=== PATIENT | female | born 1995 | race Caucasian/White ===

== ENCOUNTER → 2018-12-04 | Outpatient (CLI) | payer OTHER ==
--- NOTE | 2018-12-04 15:22 | US ---
EXAMINATION TYPE: US OB >= 14 wk fetus DATE OF EXAM: 12/04/2018 COMPARISON: None CLINICAL HISTORY: O26.842 Uterine size-date discrepancy, second trim TECHNIQUE: Transabdominal (TA) GESTATIONAL AGE / DATING Physician Established: (21 weeks/0 days) EDC: 04/17/19 Dates by LMP: (21 weeks/2 days) EDC: 04/14/18 Dates by First Scan: No previous this is first scan ( weeks/ days) EDC: Dates by Current Scan: (20 weeks/5 days) EDC: 04/18/19 Beta HCG (if available): SURVEY IUP: Single PLACENTA: Posterior PREVIA: No Previa AVIS: 13.5 cm Normal CERVICAL LENGTH (transabdominal: norm > 3.0cm): 3.0 cm BIOMETRY PRESENTATION: Breech LIE: Longitudinal BPD: 4.9 cm 21 weeks / 0 days HC: 17.4 cm 19 weeks / 6 days AC: 16.2 cm 21 weeks / 2 days FL: 3.7 cm 21 weeks / 4 days ESTIMATED WEIGHT IN GRAMS: 410.9 grams ESTIMATED WEIGHT IN LBS/OZ: 0 lbs. 14 oz. WEIGHT PERCENTAGE BASED ON ESTABLISHED DATES: 43.0% HC/AC: 1.1 Normal FL/AC: 74.1 Normal HEART RATE: 160 bpm RHYTHM: Normal Choroid plexus cyst noted = 0.36 cm RVOT and LVOT not well seen due to lie (spine up). IMPRESSION: Single viable intrauterine as discussed above. Chorioplexus cyst noted.
== END ==
LOC: RADUSWWP 13:54
PROVIDERS: ATTEND Obstetrics & Gynecology
DX: O26.842 Uterine size-date discrepancy, second trimester (principal); O99.352 Diseases of the nervous system complicating pregnancy, second trimester; G93.0 Cerebral cysts; Z3A.21 21 weeks gestation of pregnancy
CPT/HCPCS: 76805